=== PATIENT | female | born 1970 | race Caucasian/White ===

== ENCOUNTER 2018-01-12 12:51 | Emergency (ER) | payer OTHER, SELFPAY ==
--- NOTE | 2018-01-12 15:02 | RAD ---
RIGHT ANKLE 3 VIEWS: Date: 01/12/18 PROVIDED CLINICAL HISTORY: Right ankle pain status post fall. FINDINGS: There is no evidence for fracture or other acute osseous abnormality. If there is persistent clinical concern, conservative management and follow-up imaging are advised. Postoperative changes are seen i nvolving the fifth metatarsal. IMPRESSION: As above. POS: [facility]
[2018-01-12] MEDS ORDERED: Adacel (T-DAP) 0.5 ML VIAL ONE (15:17)
[2018-01-12] MEDS ORDERED: Bacitracin Zinc 1 Packet ONE (15:25)
== END 2018-01-12 15:50 | disposition home or self-care (01) ==
LOC: ERS 12:51
DX: S93.401A Sprain of unspecified ligament of right ankle, initial encounter (principal); S80.212A Abrasion, left knee, initial encounter; E66.9 Obesity, unspecified; Z79.899 Other long term (current) drug therapy; X50.1XXA Overexertion from prolonged static or awkward postures, initial encounter
CPT/HCPCS: 90471; 90715

== ENCOUNTER 2018-07-12 08:05 | Emergency (ER) | payer SELFPAY ==
[2018-07-12] MEDS ORDERED: Amoxicillin/Potassium Clav 875 MG TAB ONE (09:53)
[2018-07-12] MEDS ORDERED: Acetaminophen/Codeine 30-300mg Tablet ONE (09:53)
== END 2018-07-12 09:58 | disposition home or self-care (01) ==
LOC: ERS 08:05
DX: K04.7 Periapical abscess without sinus (principal); I10 Essential (primary) hypertension; F32.9 Major depressive disorder, single episode, unspecified
CPT/HCPCS: 99282

== ENCOUNTER 2018-07-29 13:53 | Emergency (ER) | payer SELFPAY ==
[~2018-07-29 13:53] MED LIST: ISOVUE-370 76%-LOCM 1 ML ONE
[2018-07-29 14:56] LABS: #Eosinphils 0.2 thou/uL (0.0-0.7); #Lymphocytes 2.5 thou/uL (1.20-3.40); #Monocytes 0.5 thou/uL (0.11-0.59); #Neutrophils 3.5 thou/uL (1.40-6.50); %Basophils 0.7 % (0.0-1.0); %Lymphocytes 36.7 % (21.0-51.0); %Monocytes 7.5 % (0.0-10.0); %Neutrophils 52.2 % (42.0-75.0); Hemoglobin 10.6 g/dL (12.0-16.0); Mean Corpuscular HGB CONC 32.4 g/dL (32.0-36.0); Mean Corpuscular Volume 80.3 fL (78.0-98.0); Mean Platelet Volume 7.7 fL (7.4-10.4); Platelet Count 384 thou/uL (130-400); RBC Distribution Width 15.3 % (11.5-14.5); Red Blood Cell (RBC) Count 4.06 mill/uL (4.20-5.40); White Blood Cell (WBC) Count 6.7 thou/uL (4.8-10.8)
--- NOTE | 2018-07-29 15:02 | CT ---
FCT Brain WO Con: 07/29/2018 2:30 PM CLINICAL HISTORY: Altered mental status. COMPARISON: None. FINDINGS: Hemorrhage: None. Ventricular system: Normal in size and morphology for the patient's age. Cerebral parenchyma: No significant abnormalities. Midline shift: None. Calvarium: Normal. Visualized Paranasal sinuses: Clear. IMPRESSION: No acute intracranial abnormalities.
[2018-07-29 15:10] LABS: ALT (SGPT) 15 U/L (8-55); AST (SGOT) 24 U/L (5-34); Alkaline Phosphatase 95 U/L (40-150); Anion Gap 15 mmol/L (10-20); BUN (Urea Nitrogen) 41 mg/dL (7.0-18.7); Bilirubin, Total 0.3 mg/dL (0.2-1.2); CK (CPK) 370 U/L (29-168); Calc. Creatinine Clearance 0 mL/min (70-130); Calcium 9.2 mg/dL (7.8-10.44); Carbon Dioxide 22 mmol/L (22-29); Chloride 102 mmol/L (98-107); Estimated GFR-MDRD 45; Globulin 3.3 g/dL (2.4-3.5); Glucose 112 mg/dL (70-105); Potassium 5.1 mmol/L (3.5-5.1); Protein, Total 7.3 g/dL (6.0-8.3); Sodium 134 mmol/L (136-145)
--- NOTE | 2018-07-29 16:40 | CT ---
FCTA thorax with contrast with 3-D volume rendering CLINICAL HISTORY: Tachypnea, tachycardia FINDINGS: No significant filling defect of pulmonary arteries. No lobar consolidation, effusion, or pneumothorax. Minimal patchy density may relate to atelectasis o r mild scar. Gastric band is in place with patulous esophagus demonstrating thick wall. There is mild hiatal herni a. Chronic posterior right rib deformity is present. IMPRESSION: No acute pulmonary embolus. Additional details are described above.
[2018-07-29 17:03] LABS: Bilirubin Negative (Negative); Blood, Urine Negative (Negative); Clarity CLEAR (Clear); Glucose, Urine (Dipstick) Negative (Negative); Leukocyte Negative (Negative); Nitrite Negative (Negative); Protein, Urine (Dipstick) Negative (Neg-Trace); Specific Gravity, Urine 1.029 (1.002-1.036); Urobilinogen 0.2 mg/dL (0.2-1.0)
== END 2018-07-29 18:27 | disposition home or self-care (01) ==
LOC: ERS 13:53
DX: E86.0 Dehydration (principal); R20.2 Paresthesia of skin; I10 Essential (primary) hypertension; F41.9 Anxiety disorder, unspecified; F31.9 Bipolar disorder, unspecified; Z79.899 Other long term (current) drug therapy
CPT/HCPCS: 70450; 71275; 80053; 81003; 82550; 84443; 85025; 85379; 93005; 94760; 96360; Q9966

== ENCOUNTER 2019-02-26 02:56 | Inpatient (IN) | payer SELFPAY ==
[2019-02-26] MEDS ORDERED: methylPREDNISolone Sod Succ/PF 125 MG/2 ML VIAL ONE (03:22)
[2019-02-26] MEDS ORDERED: Ondansetron PF 4 MG/2 ML Vial ONE (03:32)
[2019-02-26 03:34] LABS: #Eosinphils 0.1 thou/uL (0.0-0.7); #Lymphocytes 1.5 thou/uL (1.20-3.40); #Monocytes 0.1 thou/uL (0.11-0.59); #Neutrophils 6.6 thou/uL (1.40-6.50); %Basophils 0.4 % (0.0-1.0); %Eosinophils 1.2 % (0.0-10.0); %Lymphocytes 17.8 % (21.0-51.0); %Neutrophils 79.6 % (42.0-75.0); Hemoglobin 11.6 g/dL (12.0-16.0); Mean Corpuscular Hemoglobin 29.4 pg (27.0-31.0); Mean Corpuscular Volume 86.6 fL (78.0-98.0); Mean Platelet Volume 7.2 fL (7.4-10.4); Platelet Count 334 thou/uL (130-400); RBC Distribution Width 13.1 % (11.5-14.5); Red Blood Cell (RBC) Count 3.94 mill/uL (4.20-5.40); White Blood Cell (WBC) Count 8.3 thou/uL (4.8-10.8)
[2019-02-26 03:58] LABS: ALT (SGPT) 15 U/L (8-55); AST (SGOT) 20 U/L (5-34); Albumin 3.9 g/dL (3.5-5.0); Alkaline Phosphatase 78 U/L (40-110); Anion Gap 14 mmol/L (10-20); BUN (Urea Nitrogen) 18 mg/dL (7.0-18.7); Bilirubin, Total 0.2 mg/dL (0.2-1.2); CK (CPK) 244 U/L (29-168); Calc. Creatinine Clearance 0 mL/min (70-130); Calcium 9.1 mg/dL (7.8-10.44); Carbon Dioxide 23 mmol/L (22-29); Chloride 107 mmol/L (98-107); Estimated GFR-MDRD 55; Globulin 2.9 g/dL (2.4-3.5); Glucose 105 mg/dL (70-105); Potassium 3.6 mmol/L (3.5-5.1); Protein, Total 6.8 g/dL (6.0-8.3); Sodium 140 mmol/L (136-145)
[2019-02-26] MEDS ORDERED: Azithromycin 500 MG VIAL ONE (03:59)
[2019-02-26] MEDS ORDERED: cefTRIAXone\\ROCEPHIN 1 GM VIAL ONE (03:59)
[2019-02-26] MEDS ORDERED: Acetaminophen 500 MG TAB ONE (06:28)
--- NOTE | 2019-02-26 07:58 | RAD ---
EXAM: Chest PA and lateral: HISTORY: Shortness of breath x6 hours. COMPARISON: 05/23/2012 FINDINGS: Heart: Normal cardiac silhouette Aorta: Unremarkable Pulmonary vessels: Normal Costophrenic angles: Costophrenic angles are clear. Lungs: Patchy interstitial and alveolar opacities predominantly in the right lung. Pneumothorax: No pneumothorax Osseous structures: No osseous abnormalities IMPRESSION: Patchy interstitial and alveolar opacities predominantly in the right lung. Continued surveillance is recommended.
[2019-02-26] MEDS ORDERED: Acetaminophen 325 MG TAB PO PRN (08:28)
[2019-02-26] MEDS ORDERED: Labetalol HCl 100 MG/20 ML VIAL SLOW IVP PRN (08:31)
[2019-02-26] MEDS ORDERED: Docusate 100 MG CAP PO PRN (08:31)
[2019-02-26] MEDS ORDERED: Benzonatate 100 MG CAP PO PRN (08:31)
[2019-02-26] MEDS ORDERED: Famotidine 20 MG TAB PO SCH (09:00)
[2019-02-26] MEDS ORDERED: Ondansetron ODT 4 MG TAB PO PRN (09:34)
[2019-02-26] MEDS ORDERED: Ondansetron PF 4 MG/2 ML Vial IVP PRN (09:34)
--- NOTE | 2019-02-26 09:34 | CT ---
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 Denies fever, palpitations, or syncope. No history of c opd or heart disease. Exacerbated by exertion. Alleviated by nothing. No medications prior to arrival TECHNIQUE: Imaging protocol: Computed tomographic angiography of the chest with intravenous contrast. 3D rendering: MIP reconstructed images were created and reviewed. COMPARISON: No relevant prior studies available. FINDINGS: Pulmonary arteries: Motion artifact most prominent in the bases. No pulmonary embolus identified in t he main or lobar branches or upper lobe segmental branches which can be evaluated. Aorta: No aortic aneurysm. No aortic dissection. Lungs: Scattered patchy groundglass opacities and foci of airspace disease in the right lung most pro minent in the mid to lower lung field and dependently. Clear left lung. Pleural space: No pneumothorax. No pleural effusion. Heart: Minimal pericardial effusion. Mediastinum: Fluid-filled esophagus with mild apparent wall thickening. Lymph nodes: Unremarkable. No enlarged lymph nodes. Bones/joints: Unremarkable. No acute fracture. Soft tissues: Unremarkable. Other findings: Gastric band. IMPRESSION: 1. No evidence of central pulmonary embolus. 2. Patchy airspace disease in the right lung suggestive of pneumonia or aspiration pneumonia. 3. Fluid-filled esophagus with apparent wall thickening. Thank you for allowing us to participate in the care of your patient. Dictated and Authenticated by: Kal Forrester MD 02/26/2019 6:03 AM Central Time ([place] & [place]) FINAL REPORT EMERGENCY AFTER HOURS CT ANGIOGRAM CHEST WITH 3D RENDERING: DATE: 02/26/19 TIME: 0506 hours FINDINGS/IMPRESSION: Evidence for right lung pneumonia. Opacification of the mid and peripheral pulmonary artery branches is limited. No evidence for central pulmonary embolism. Lap band in place with minimally dilated lizy nirav pouch, as well as fluid-filled dilated esophagus with minimal wall thickening at the GE junction. Report in agreement with preliminary report given on-call by Asad. POS: [facility] [place]
[2019-02-26 11:44] VITALS: BMI 47.2
[2019-02-26] MEDS ORDERED: Famotidine 20 MG TAB PO PRN (12:10)
[2019-02-26] MEDS: Nicotine 14 MG PATCH TD SCH (14:42)
[2019-02-26] MEDS: HYDROcodone/Acetaminophen 5/325 mg Tablet PO PRN ×2 (14:51→20:09)
--- NOTE | 2019-02-26 15:23 | PDOC.HHP ---
Hospitalist HPI - History of Present Illness Shortness of breath History of Present Illness: 49-year-old female with past medical history of hypertension, gastroesophageal reflux disease, depression, elevated BMI status post lap band surgery, and tobacco abuse presents with worsening cough and shortness of breath. Patient states the symptoms started last night all of a sudden she was noticing she was feeling very short of breath. Patient works in the front window cashier in a hotel and she is exposed to the general public and she could've picked something up from them though she does not specifically recall any sick contacts. Patient denies subjective fever chills. Patient is not having productive sputum. Patient has not tried any remedies to get shortness of breath or cough resolved. The patient has been having worsening GERD symptoms for which she normally takes ranitidine, though she has not been taking it since it was taken off the market. Recently. Patient has prior history of smoking cigarette tobacco abuse and she has changed of vaping, this is her most significant risk factor for community acquired pneumonia. Patient admitted to medical unit with telemetry for further evaluation and treatment. Patient had CT angiography of the chest that was negative for pulmonary embolism and did demonstrate right-sided pneumonia. Patient started on antibiotics, breathing treatments, and IV fluid resuscitation. Hospitalist ROS - Review of Systems All other systems reviewed; all pertinent +/- noted in HPI/Subj - Medication Medications: Active Medications Generic Name Dose Route Start Last Admin Trade Name Freq PRN Reason Stop Dose Admin Hydrocodone Bitart/Acetaminophen 1 tab 02/26/19 08:28 02/26/19 14:51 [place] 5/325 PO 1 tab Q4H PRN Administration Moderate Pain (4-6) Albuterol/Ipratropium 3 ml 02/26/19 11:00 02/26/19 14:39 Duoneb IPPB 3 ml [id number] JESSE Administration Famotidine 20 mg 02/26/19 12:10 02/26/19 14:51 Pepcid PO 20 mg BID PRN Administration Indigestion Nicotine 14 mg 02/26/19 13:00 02/26/19 14:42 Nicoderm Patch TD 14 mg Q24HR JESSE Administration Hospitalist History - Past Medical History Source: patient Cardiac: reports: HTN Pulmonary: reports: hypertension Gastrointestinal: reports: GERD Psych: reports: Depression - Past Surgical History Past Surgical History: reports: Other (Lap band) - Family History Family History: reports: hyperlipidemia, hypertension - Social History Smoking Status: Current every day smoker (Smokes vape nicotine, former cigarette smoker) Tobacco Type: cigarettes (Now vape) Alcohol: reports: Rare Drugs: reports: none Living Situation: With Family Domestic Violence: Negative Activity level: independent ambulation - Exam General Appearance: NAD, awake alert Eye: PERRL, anicteric sclera ENT: normocephalic atraumatic, moist mucosa Neck: supple, symmetric, no lymphadenopathy Heart: RRR, no murmur, no gallops Respiratory: no rales, normal chest expansion, rhonchi, wheezes (Right sided wheezing - most significant in right middle lobe) Gastrointestinal: soft, non-tender, no guarding, no rigidity Extremities: no edema Skin: no lesions, no rashes Neurological: cranial nerve grossly intact, normal sensation to touch, no focal deficits Musculoskeletal: normal strength, no muscle wasting Psychiatric: normal affect, A&O x 3 Hospitalist Results - Labs Result Diagrams: 02/26/19 03:15 02/26/19 03:15 Lab results: WBC 8.3 thou/uL (4.8-10.8) 02/26/19 03:15 Hgb 11.6 g/dL (12.0-16.0) L 02/26/19 03:15 Hct 34.1 % (36.0-47.0) L 02/26/19 03:15 MCV 86.6 fL (78.0-98.0) 02/26/19 03:15 Plt Count 334 thou/uL (130-400) 02/26/19 03:15 Neutrophils % 79.6 % (42.0-75.0) H 02/26/19 03:15 Sodium 140 mmol/L (136-145) 02/26/19 03:15 Potassium 3.6 mmol/L (3.5-5.1) 02/26/19 03:15 Chloride 107 mmol/L (98-107) 02/26/19 03:15 Carbon Dioxide 23 mmol/L (22-29) 02/26/19 03:15 BUN 18 mg/dL (7.0-18.7) 02/26/19 03:15 Creatinine 1.07 mg/dL (0.6-1.1) 02/26/19 03:15 Glucose 105 mg/dL (70-105) 02/26/19 03:15 Calcium 9.1 mg/dL (7.8-10.44) 02/26/19 03:15 Total Bilirubin 0.2 mg/dL (0.2-1.2) 02/26/19 03:15 AST 20 U/L (5-34) 02/26/19 03:15 ALT 15 U/L (8-55) 02/26/19 03:15 Alkaline Phosphatase 78 U/L (40-110) 02/26/19 03:15 Creatine Kinase 244 U/L (29-168) H 02/26/19 03:15 Troponin I Less than 0.010 ng/mL (< 0.028) 02/26/19 03:15 Serum Total Protein 6.8 g/dL (6.0-8.3) 02/26/19 03:15 Albumin 3.9 g/dL (3.5-5.0) 02/26/19 03:15 - Radiology Interpretation CT scan - chest Status: image reviewed by oh Chest x-ray Status: image reviewed by oh Hospitalist H&P A/P - Problem (1) Community acquired bacterial pneumonia Code(s): J15.9 - UNSPECIFIED BACTERIAL PNEUMONIA Status: Acute (2) Shortness of breath Code(s): R06.02 - SHORTNESS OF BREATH Status: Acute (3) Cough Code(s): R05 - COUGH Status: Acute (4) Obesity Code(s): E66.9 - OBESITY, UNSPECIFIED Status: Chronic (5) HTN (hypertension) Code(s): I10 - ESSENTIAL (PRIMARY) HYPERTENSION Status: Chronic (6) GERD (gastroesophageal reflux disease) Code(s): K21.9 - GASTRO-ESOPHAGEAL REFLUX DISEASE WITHOUT ESOPHAGITIS Status: Chronic (7) Tobacco abuse Code(s): Z72.0 - TOBACCO USE Status: Chronic (8) Depression Code(s): F32.9 - MAJOR DEPRESSIVE DISORDER, SINGLE EPISODE, UNSPECIFIED Status : Chronic - Plan Plan: Plan: Admit to medical unit CT angiography of the chest concerning for right middle lobe pneumonia start pulmonary specific antibiotics with coverage for community acquired pneumonia small-volume nebulizers scheduled and as needed for shortness of breath cough aid with tessalon pearls as needed resume patient's home blood pressure medications, may need to increase dose. We will hold her clonidine and recommend discontinuing this medication as this results in rebound hypertension continue mood stabilizing medications protonic's QAM for uncontrolled GERD, famotidine as needed for symptoms, may use Tums if she prefers patient not requiring supplemental oxygen blood pressure control patient does not have insurance, will order screening labs with hemoglobin A1c, lipid panel, and thyroid function as she has limited access to medical services in the outpatient setting.
[2019-02-26 16:30] LABS: Hemoglobin A1c 5.3 % (4.0-6.0)
[2019-02-26 17:12] LABS: Free T4 (Free Thyroxine) 0.73 ng/dL (0.70-1.48); Thyroid Stimulating Hormone 0.8903 uIU/mL (0.35-4.94)
[2019-02-26] MEDS ORDERED: ISOVUE-370 76%-LOCM 1 ML ONE (19:04)
[2019-02-26] MEDS: diphenhydrAMINE 25 MG CAP PO PRN (20:09)
[2019-02-26] MEDS: Melatonin 3 MG TAB PO PRN (20:09)
[2019-02-26] MEDS: buPROPion HCl 100 MG TAB PO SCH (20:26)
[2019-02-27] MEDS: HYDROcodone/Acetaminophen 7.5/325 mg Tablet PO PRN (00:24)
[2019-02-27] MEDS: cefTRIAXone\\ROCEPHIN 2 GM in Sodium Chloride 0.9% 100 ML IVPB SCH (03:22)
[2019-02-27 06:44] LABS: Anion Gap 13 mmol/L (10-20); BUN (Urea Nitrogen) 11 mg/dL (7.0-18.7); Calc. Creatinine Clearance 165 mL/min (70-130); Calcium 8.7 mg/dL (7.8-10.44); Carbon Dioxide 22 mmol/L (22-29); Cardiac Risk 2.2 (Less than 4.5); Chloride 107 mmol/L (98-107); Cholesterol 159 mg/dl (< 200 Desired); Estimated GFR-MDRD 83; Glucose 84 mg/dL (70-105); HDL Cholesterol 71 mg/dL (>60 Neg Risk); LDL Cholesterol, Calculated 71 mg/dL; Potassium 3.7 mmol/L (3.5-5.1); Sodium 138 mmol/L (136-145); Triglycerides 84 mg/dL (Less than 150)
[2019-02-27 06:46] LABS: Hemoglobin 9.6 g/dL (12.0-16.0); Mean Corpuscular HGB CONC 32.6 g/dL (32.0-36.0); Mean Corpuscular Hemoglobin 28.8 pg (27.0-31.0); Mean Corpuscular Volume 88.6 fL (78.0-98.0); Platelet Count 268 thou/uL (130-400); RBC Distribution Width 13.4 % (11.5-14.5); Red Blood Cell (RBC) Count 3.32 mill/uL (4.20-5.40); White Blood Cell (WBC) Count 16.4 thou/uL (4.8-10.8)
[2019-02-27 07:49] LABS: Band 20 % (5-11); Lymphocytes 10 % (21-51); MDiff Complete? YES; Monocytes 4 % (0-10); Neutrophil 65 % (42-75); Platelet Morphology Comment Appears Adequate; Polychromasia SLIGHT = 2-3 cells (100X) (0-2/hpf)
[2019-02-27] MEDS: Nicotine 14 MG PATCH TD SCH (08:29)
[2019-02-27] MEDS: Citalopram 20 MG TAB PO SCH (08:29)
[2019-02-27] MEDS: Losartan 25 MG TAB PO SCH (08:29)
[2019-02-27] MEDS: buPROPion HCl 100 MG TAB PO SCH ×2 (08:29→20:22)
[2019-02-27] MEDS ORDERED: SUMAtriptan Succinate 25 MG TAB PO SCH (09:00)
[2019-02-27] MEDS ORDERED: FLU VACC QS2019-20(6MOS UP)/PF 60 MCG/0.5 ML SYRINGE IM ONE (12:15)
--- NOTE | 2019-02-27 15:49 | PDOC.HOSPP ---
- Subjective Subjective: Seen and examined. Patient states that cough is worse. Getting some deep mucus rumbling though she is not able to cough it out. Overall not feeling better. WBC count up. Continuing antibiotics and breathing treatments. Patient had migraine this a.m., better with Imitrex. - Objective Vital Signs & Weight: Vital Signs (12 hours) Temp Pulse Resp BP Pulse Ox 02/27/19 13:51 96 18 95 02/27/19 11:58 99.2 F 96 20 149/91 H 91 L 02/27/19 07:05 98.5 F 108 H 20 146/91 H 94 L 02/27/19 06:26 101 H 18 94 L 02/27/19 04:00 98.1 F 92 18 137/89 94 L Weight Weight 250 lb I&O: 02/26/19 02/27/19 02/28/19 06:59 06:59 06:59 Intake Total 510 Balance 510 Result Diagrams: 02/27/19 05:48 02/27/19 05:48 Radiology Reviewed by me: Yes (CTA chest) Hospitalist ROS - Review of Systems All other systems reviewed; all pertinent +/- noted in HPI/Subj - Medication Medications: Active Medications Generic Name Dose Route Start Last Admin Trade Name Freq PRN Reason Stop Dose Admin Hydrocodone Bitart/Acetaminophen 1 tab 02/26/19 08:28 02/26/19 20:09 [place] 5/325 PO 1 tab Q4H PRN Administration Moderate Pain (4-6) Hydrocodone Bitart/Acetaminophen 1 tab 02/26/19 08:28 02/27/19 00:24 [place] 7.5/325 PO 1 tab Q4H PRN Administration Severe Pain (7-10) Albuterol/Ipratropium 3 ml 02/26/19 11:00 02/27/19 13:51 Duoneb IPPB 3 ml [id number] JESSE Administration Bupropion HCl 200 mg 02/26/19 21:00 02/27/19 08:29 Wellbutrin PO 200 mg BID JESSE Administration Citalopram Hydrobromide 40 mg 02/27/19 09:00 02/27/19 08:29 Celexa PO 40 mg DAILY JESSE Administration Diphenhydramine HCl 25 mg 02/26/19 08:31 02/26/19 20:09 Benadryl PO 25 mg Q6H PRN Administration Itching & Insomnia Famotidine 20 mg 02/26/19 12:10 02/26/19 14:51 Pepcid PO 20 mg BID PRN Administration Indigestion Ceftriaxone Sodium 2 gm/ 100 mls @ 200 mls/hr 02/27/19 04:00 02/27/19 03:22 Sodium Chloride IVPB 03/05/19 08:46 100 mls 0400 JESSE Administration Losartan Potassium 100 mg 02/27/19 09:00 02/27/19 08:29 Cozaar PO 100 mg DAILY JESSE Administration Melatonin 3 mg 02/26/19 08:31 02/26/19 20:09 Melatonin PO 3 mg HS PRN Administration Insomnia Nicotine 14 mg 02/26/19 13:00 02/27/19 08:29 Nicoderm Patch TD 14 mg Q24HR JESSE Administration Pantoprazole Sodium 40 mg 02/27/19 09:00 02/27/19 08:29 Protonix PO 40 mg QAM JESSE Administration Sodium Chloride 10 ml 02/27/19 09:00 02/27/19 09:41 Flush - Normal Saline IVF 10 ml Q12HR JESSE Administration - Exam General Appearance: NAD, awake alert Eye: PERRL ENT: normocephalic atraumatic, moist mucosa Neck: supple, symmetric, no lymphadenopathy Heart: RRR, no murmur, no gallops, no rubs Respiratory: no rales, normal chest expansion, no tachypnea, rhonchi, wheezes ( Right middle lobe rhonchi and wheezing) Gastrointestinal: soft, non-tender, non-distended, no guarding, no rigidity Extremities: no clubbing, no edema Skin: no lesions, no rashes Neurological: cranial nerve grossly intact, normal sensation to touch, no focal deficits Musculoskeletal: normal strength, no muscle wasting Psychiatric: normal affect, A&O x 3 Hosp A/P (1) Community acquired bacterial pneumonia Code(s): J15.9 - UNSPECIFIED BACTERIAL PNEUMONIA Status: Acute (2) Shortness of breath Code(s): R06.02 - SHORTNESS OF BREATH Status: Acute (3) Cough Code(s): R05 - COUGH Status: Resolved (4) Obesity Code(s): E66.9 - OBESITY, UNSPECIFIED Status: Chronic (5) HTN (hypertension) Code(s): I10 - ESSENTIAL (PRIMARY) HYPERTENSION Status: Chronic (6) GERD (gastroesophageal reflux disease) Code(s): K21.9 - GASTRO-ESOPHAGEAL REFLUX DISEASE WITHOUT ESOPHAGITIS Status: Chronic (7) Tobacco abuse Code(s): Z72.0 - TOBACCO USE Status: Chronic (8) Depression Code(s): F32.9 - MAJOR DEPRESSIVE DISORDER, SINGLE EPISODE, UNSPECIFIED Status : Chronic - Plan Plan: medical unit CT angiography of the chest concerning for right middle lobe pneumonia, no pulmonary embolism WBC 16k continue pulmonary specific antibiotics small-volume nebulizers scheduled and as needed for shortness of breath Add Muscinex for expectorant cough aid with tessalon pearls as needed Nicotine patch resume blood pressure medications continue mood stabilizing medications protonic's QAM symptomatic therapy for GERD as needed Imitrex times one this a.m. for migraine Topamax started for chronic making control, she has been on this in the past lipid panel not elevated, no need for cholesterol-lowering medication thyroid function normal A1C 5.3, no DM
[2019-02-27] MEDS: guaiFENesin ER 600 MG TAB PO SCH (20:22)
[2019-02-27] MEDS: diphenhydrAMINE 25 MG CAP PO PRN (20:23)
[2019-02-27] MEDS: Melatonin 3 MG TAB PO PRN (20:23)
[2019-02-27] MEDS: Topiramate 25 MG TAB PO SCH (20:23)
[2019-02-28] MEDS: cefTRIAXone\\ROCEPHIN 2 GM in Sodium Chloride 0.9% 100 ML IVPB SCH (03:20)
[2019-02-28] MEDS: buPROPion HCl 100 MG TAB PO SCH ×2 (08:29→20:18)
[2019-02-28] MEDS: Topiramate 25 MG TAB PO SCH ×2 (08:29→20:16)
[2019-02-28] MEDS: guaiFENesin ER 600 MG TAB PO SCH ×2 (08:29→20:16)
[2019-02-28] MEDS: Losartan 25 MG TAB PO SCH (08:29)
[2019-02-28] MEDS: Nicotine 14 MG PATCH TD SCH (08:29)
[2019-02-28] MEDS: Citalopram 20 MG TAB PO SCH (08:29)
[2019-02-28] MEDS ORDERED: Nicotine 14 MG PATCH TD PRN (13:44)
[2019-02-28] MEDS ORDERED: cloNIDine 0.1 MG TAB PO PRN (13:45)
[2019-02-28] MEDS ORDERED: Fluconazole 100 MG TAB PO SCH (13:45)
--- NOTE | 2019-02-28 14:01 | PDOC.HOSPP ---
- Subjective Encounter Date: 02/28/19 Encounter Time: 13:59 Subjective: Patient seen and examined for Pneumonia. Feels gen weak and fatigued. Exertional dyspnea. No other complaints. No overnight events - Objective Vital Signs & Weight: Vital Signs (12 hours) Temp Pulse Resp BP Pulse Ox 02/28/19 11:37 92 16 02/28/19 07:07 98.1 F 92 18 150/89 H 94 L 02/28/19 06:38 103 H 18 98 02/28/19 03:26 98.5 F 92 18 142/98 H 93 L Weight Weight 250 lb I&O: 02/27/19 02/28/19 03/01/19 06:59 06:59 06:59 Intake Total 510 1720 Balance 510 1720 Result Diagrams: 02/27/19 05:48 02/27/19 05:48 Radiology Reviewed by me: Yes (CTA - Rt sided pneumonia) Hospitalist ROS - Review of Systems Respiratory: reports: cough, dry, shortness of breath, SOB with excertion, pleuritic pain Cardiovascular: denies: chest pain, palpitations, orthopnea, paroxysmal noc. dyspnea, edema, light headedness, other Gastrointestinal: denies: nausea, vomiting, abdominal pain, diarrhea, constipation, melena, hematochezia, other - Medication Medications: Active Medications Generic Name Dose Route Start Last Admin Trade Name Freq PRN Reason Stop Dose Admin Hydrocodone Bitart/Acetaminophen 1 tab 02/26/19 08:28 02/26/19 20:09 [place] 5/325 PO 1 tab Q4H PRN Administration Moderate Pain (4-6) Hydrocodone Bitart/Acetaminophen 1 tab 02/26/19 08:28 02/27/19 00:24 [place] 7.5/325 PO 1 tab Q4H PRN Administration Severe Pain (7-10) Bupropion HCl 200 mg 02/26/19 21:00 02/28/19 08:29 Wellbutrin PO 200 mg BID JESSE Administration Diphenhydramine HCl 25 mg 02/26/19 08:31 02/27/19 20:23 Benadryl PO 25 mg Q6H PRN Administration Itching & Insomnia Famotidine 20 mg 02/26/19 12:10 02/26/19 14:51 Pepcid PO 20 mg BID PRN Administration Indigestion Guaifenesin 1,200 mg 02/27/19 21:00 02/28/19 08:29 Mucinex PO 03/02/19 21:01 1,200 mg Q12HR JESSE Administration Losartan Potassium 100 mg 02/27/19 09:00 02/28/19 08:29 Cozaar PO 100 mg DAILY JESSE Administration Melatonin 3 mg 02/26/19 08:31 02/27/19 20:23 Melatonin PO 3 mg HS PRN Administration Insomnia Sodium Chloride 10 ml 02/27/19 09:00 02/28/19 08:30 Flush - Normal Saline IVF 10 ml Q12HR JESSE Administration Topiramate 50 mg 02/27/19 21:00 02/28/19 08:29 Topamax PO 50 mg BID JESSE Administration - Exam General Appearance: NAD Neck: supple, no JVD Heart: RRR, no gallops Respiratory: CTAB, rales (Rt sided), rhonchi Gastrointestinal: soft, non-tender, non-distended, normal bowel sounds Extremities: no edema Hosp A/P - Plan DVT proph w/SCDs Rt sided Pneumonia ? Community acquired vs Aspiration (CTA showed fluid filled esophagus) Tobacco dep Neema Vaginitis Anxiety Morbid obesity GERD PLAN: Change Ceftriaxone to Zosyn for possible Aspiration Add Azithromycin for possible CA Pneumonia Change Nicotin patch to PRN Cont Nebs Add Fluconazole Hold Celexa while on Fluconazole AM labs Cont Mucinex Add O2 humidification Repeat CXR - PA/Lat in AM Tobacco cessation Lifestyle mod for GERD
[2019-02-28] MEDS: Piperacillin/Tazobactam 3.375 GM in Sodium Chloride 0.9% 100 ML IVPB SCH ×2 (15:44→23:05)
[2019-02-28] MEDS: Azithromycin 500 MG in Sodium Chloride 0.9% 250 ML 250 ML IVPB SCH (15:44)
[2019-02-28] MEDS: HYDROcodone/Acetaminophen 7.5/325 mg Tablet PO PRN (15:50)
[2019-02-28] MEDS: Polyethylene Glycol 3350 17 GM Packet PO PRN (20:14)
[2019-02-28] MEDS: Senokot S 8.6-50 MG TAB PO SCH (20:16)
[2019-02-28] MEDS: Melatonin 3 MG TAB PO PRN (20:17)
[2019-02-28] MEDS: diphenhydrAMINE 25 MG CAP PO PRN (20:18)
[2019-03-01] MEDS: Piperacillin/Tazobactam 3.375 GM in Sodium Chloride 0.9% 100 ML IVPB SCH ×3 (05:04→17:56)
[2019-03-01 07:21] LABS: #Basophils 0.1 thou/uL (0.0-0.2); #Eosinphils 0.4 thou/uL (0.0-0.7); #Lymphocytes 1.7 thou/uL (1.20-3.40); #Monocytes 0.6 thou/uL (0.11-0.59); #Neutrophils 7.2 thou/uL (1.40-6.50); %Basophils 0.6 % (0.0-1.0); %Eosinophils 3.7 % (0.0-10.0); %Lymphocytes 16.9 % (21.0-51.0); %Monocytes 5.6 % (0.0-10.0); %Neutrophils 73.2 % (42.0-75.0); Hemoglobin 10.5 g/dL (12.0-16.0); Mean Corpuscular HGB CONC 32.7 g/dL (32.0-36.0); Mean Corpuscular Hemoglobin 29.4 pg (27.0-31.0); Mean Corpuscular Volume 90.1 fL (78.0-98.0); Mean Platelet Volume 7.2 fL (7.4-10.4); Platelet Count 327 thou/uL (130-400); RBC Distribution Width 13.4 % (11.5-14.5); Red Blood Cell (RBC) Count 3.58 mill/uL (4.20-5.40); White Blood Cell (WBC) Count 9.9 thou/uL (4.8-10.8)
[2019-03-01 07:43] LABS: ALT (SGPT) 9 U/L (8-55); AST (SGOT) 15 U/L (5-34); Albumin 3.7 g/dL (3.5-5.0); Alkaline Phosphatase 68 U/L (40-110); Anion Gap 15 mmol/L (10-20); BUN (Urea Nitrogen) 12 mg/dL (7.0-18.7); Bilirubin, Total 0.4 mg/dL (0.2-1.2); Calc. Creatinine Clearance 137 mL/min (70-130); Carbon Dioxide 18 mmol/L (22-29); Chloride 108 mmol/L (98-107); Estimated GFR-MDRD 67; Glucose 78 mg/dL (70-105); Magnesium 2.1 mg/dL (1.6-2.6); Potassium 3.9 mmol/L (3.5-5.1); Protein, Total 6.7 g/dL (6.0-8.3); Sodium 137 mmol/L (136-145)
[2019-03-01] MEDS: Losartan 25 MG TAB PO SCH (08:24)
[2019-03-01] MEDS: guaiFENesin ER 600 MG TAB PO SCH ×2 (08:25→20:07)
[2019-03-01] MEDS: Saccharomyces boulardii 250 MG CAP PO SCH (08:25)
[2019-03-01] MEDS: Topiramate 25 MG TAB PO SCH ×2 (08:25→20:07)
[2019-03-01] MEDS: buPROPion HCl 100 MG TAB PO SCH ×2 (08:25→20:07)
[2019-03-01] MEDS: Fluconazole 100 MG TAB PO SCH (08:25)
[2019-03-01] MEDS: Senokot S 8.6-50 MG TAB PO SCH ×2 (08:26→20:07)
--- NOTE | 2019-03-01 09:21 | RAD ---
XR Chest Pa Lat STANDARD History: Pneumonia Comparison: Radiograph February 26, 2019 Findings: Improved aeration airspace opacities in the right lung. Left lung is clear. Impression: Improved aeration and decreased involvement right lung pneumonia.
--- NOTE | 2019-03-01 15:31 | PDOC.HOSPP ---
- Subjective Encounter Date: 03/01/19 Encounter Time: 09:20 Subjective: Pt seen for followup re: pneumonia. Still has cough, chest discomfort with coughing. - Objective Vital Signs & Weight: Vital Signs (12 hours) Temp Pulse Resp BP Pulse Ox 03/01/19 12:16 78 03/01/19 08:31 95 03/01/19 07:08 98.5 F 78 18 131/85 95 03/01/19 05:50 98.0 F 76 15 121/82 98 Weight Weight 250 lb I&O: 02/28/19 03/01/19 03/02/19 06:59 06:59 05:59 Intake Total 1720 2170 Balance 1720 2170 Result Diagrams: 03/01/19 06:46 03/01/19 06:46 Additional Labs: labs and MARs reviewed by fl Hospitalist ROS - Review of Systems Respiratory: reports: cough, dry. denies: shortness of breath, hemoptysis, SOB with excertion, pleuritic pain, sputum, wheezing Cardiovascular: denies: chest pain, palpitations, orthopnea, paroxysmal noc. dyspnea, edema, light headedness - Medication Medications: Active Medications Generic Name Dose Route Start Last Admin Trade Name Freq PRN Reason Stop Dose Admin Hydrocodone Bitart/Acetaminophen 1 tab 02/26/19 08:28 02/26/19 20:09 [place] 5/325 PO 1 tab Q4H PRN Administration Moderate Pain (4-6) Hydrocodone Bitart/Acetaminophen 1 tab 02/26/19 08:28 02/28/19 15:50 [place] 7.5/325 PO 1 tab Q4H PRN Administration Severe Pain (7-10) Albuterol/Ipratropium 3 ml 02/28/19 18:30 03/01/19 06:34 Duoneb NEB Not Given BID-RT JESSE Bupropion HCl 200 mg 02/26/19 21:00 03/01/19 08:25 Wellbutrin PO 200 mg BID JESSE Administration Diphenhydramine HCl 25 mg 02/26/19 08:31 02/28/19 20:18 Benadryl PO 25 mg Q6H PRN Administration Itching & Insomnia Famotidine 20 mg 02/26/19 12:10 02/26/19 14:51 Pepcid PO 20 mg BID PRN Administration Indigestion Fluconazole 100 mg 03/01/19 09:00 03/01/19 08:25 Diflucan PO 100 mg DAILY JESSE Administration Guaifenesin 1,200 mg 02/27/19 21:00 03/01/19 08:25 Mucinex PO 03/02/19 21:01 1,200 mg Q12HR JESSE Administration Azithromycin 500 mg/ Sodium 250 mls @ 250 mls/hr 02/28/19 15:00 02/28/19 15: 44 Chloride IVPB 250 mls 1500 JESSE Administration Piperacillin Sod/Tazobactam 100 mls @ 200 mls/hr 02/28/19 18:00 03/01/19 11: 58 Sod 3.375 gm/ Sodium Chloride IVPB 100 mls Q6HR JESSE Administration Losartan Potassium 100 mg 02/27/19 09:00 03/01/19 08:24 Cozaar PO 100 mg DAILY JESSE Administration Melatonin 3 mg 02/26/19 08:31 02/28/19 20:17 Melatonin PO 3 mg HS PRN Administration Insomnia Pantoprazole Sodium 40 mg 02/28/19 21:00 03/01/19 08:26 Protonix PO 40 mg BID JESSE Administration Polyethylene Glycol 17 gm 02/28/19 13:54 02/28/19 20:14 Miralax PO 17 gm DAILYPRN PRN Administration Constipation Saccharomyces Boulardii 250 mg 03/01/19 09:00 03/01/19 08:25 Florastor PO 250 mg DAILY JESSE Administration Senna/Docusate Sodium 1 tab 02/28/19 21:00 03/01/19 08:26 Senokot S PO 1 tab BID JESSE Administration Sodium Chloride 10 ml 02/27/19 09:00 03/01/19 08:26 Flush - Normal Saline IVF 10 ml Q12HR JESSE Administration Topiramate 50 mg 02/27/19 21:00 03/01/19 08:25 Topamax PO 50 mg BID JESSE Administration - Exam General - other findings: Morbid obesity Eye: anicteric sclera ENT: normocephalic atraumatic, moist mucosa Neck: supple, no lymphadenopathy Heart: RRR, no rubs Respiratory: CTAB Gastrointestinal: soft, non-tender Extremities: no cyanosis, no clubbing Hosp A/P - Plan continue antibiotics, respiratory therapy, out of bed/ambulate IMPRESSION: Community acquired vs Aspiration pneumonia. GERD Tobacco dependence Neema Vaginitis Anxiety Morbid obesity PLAN: Continue IV Zosyn, azithromycin. Change Nicotin patch to PRN PRN bronchodilator nebs Continue Fluconazole Celexa is on hold Cont Mucinex Add O2 humidification CXR- improved. Tobacco cessation
[2019-03-01] MEDS: Azithromycin 500 MG in Sodium Chloride 0.9% 250 ML 250 ML IVPB SCH (15:50)
[2019-03-01] MEDS: Polyethylene Glycol 3350 17 GM Packet PO PRN (15:51)
[2019-03-02] MEDS: Piperacillin/Tazobactam 3.375 GM in Sodium Chloride 0.9% 100 ML IVPB SCH ×2 (00:11→05:31)
[2019-03-02] MEDS: Losartan 25 MG TAB PO SCH (08:42)
[2019-03-02] MEDS: buPROPion HCl 100 MG TAB PO SCH ×2 (08:42→20:13)
[2019-03-02] MEDS: Fluconazole 100 MG TAB PO SCH (08:43)
[2019-03-02] MEDS: Senokot S 8.6-50 MG TAB PO SCH ×2 (08:43→21:27)
[2019-03-02] MEDS: guaiFENesin ER 600 MG TAB PO SCH ×2 (08:43→20:14)
[2019-03-02] MEDS: Topiramate 25 MG TAB PO SCH ×2 (08:44→20:14)
[2019-03-02] MEDS: Saccharomyces boulardii 250 MG CAP PO SCH (08:44)
--- NOTE | 2019-03-02 16:41 | PDOC.HOSPP ---
- Subjective Encounter Date: 03/02/19 Encounter Time: 08:40 Subjective: Pt seen for followup re: pneumonia. Feels slightly better. - Objective Vital Signs & Weight: Vital Signs (12 hours) Temp Pulse Resp BP Pulse Ox 03/02/19 08:00 98.6 F 82 17 139/86 97 Weight Weight 250 lb I&O: 03/01/19 03/02/19 03/03/19 07:59 06:59 06:59 Intake Total Balance Result Diagrams: 03/01/19 06:46 03/01/19 06:46 Additional Labs: Labs and MARs reviewed by al Hospitalist ROS - Review of Systems Constitutional: denies: fever, chills, sweats, weakness, malaise Respiratory: reports: cough, sputum. denies: dry, shortness of breath, hemoptysis, SOB with excertion, pleuritic pain, wheezing - Medication Medications: Active Medications Generic Name Dose Route Start Last Admin Trade Name Freq PRN Reason Stop Dose Admin Hydrocodone Bitart/Acetaminophen 1 tab 02/26/19 08:28 02/26/19 20:09 [place] 5/325 PO 1 tab Q4H PRN Administration Moderate Pain (4-6) Hydrocodone Bitart/Acetaminophen 1 tab 02/26/19 08:28 02/28/19 15:50 [place] 7.5/325 PO 1 tab Q4H PRN Administration Severe Pain (7-10) Albuterol/Ipratropium 3 ml 02/28/19 18:30 03/02/19 06:40 Duoneb NEB Not Given BID-RT JESSE Bupropion HCl 200 mg 02/26/19 21:00 03/02/19 08:42 Wellbutrin PO 200 mg BID JESSE Administration Diphenhydramine HCl 25 mg 02/26/19 08:31 02/28/19 20:18 Benadryl PO 25 mg Q6H PRN Administration Itching & Insomnia Docusate Sodium 100 mg 02/26/19 08:31 03/01/19 15:51 Colace PO 100 mg BIDPRN PRN Administration Constipation Famotidine 20 mg 02/26/19 12:10 02/26/19 14:51 Pepcid PO 20 mg BID PRN Administration Indigestion Fluconazole 100 mg 03/01/19 09:00 03/02/19 08:43 Diflucan PO 100 mg DAILY JESSE Administration Guaifenesin 1,200 mg 02/27/19 21:00 03/02/19 08:43 Mucinex PO 03/02/19 21:01 1,200 mg Q12HR JESSE Administration Losartan Potassium 100 mg 02/27/19 09:00 03/02/19 08:42 Cozaar PO 100 mg DAILY JESSE Administration Melatonin 3 mg 02/26/19 08:31 02/28/19 20:17 Melatonin PO 3 mg HS PRN Administration Insomnia Pantoprazole Sodium 40 mg 02/28/19 21:00 03/02/19 08:44 Protonix PO 40 mg BID JESSE Administration Polyethylene Glycol 17 gm 02/28/19 13:54 03/01/19 15:51 Miralax PO 17 gm DAILYPRN PRN Administration Constipation Saccharomyces Boulardii 250 mg 03/01/19 09:00 03/02/19 08:44 Florastor PO 250 mg DAILY JESSE Administration Senna/Docusate Sodium 1 tab 02/28/19 21:00 03/02/19 08:43 Senokot S PO 1 tab BID JESSE Administration Sodium Chloride 10 ml 02/27/19 09:00 03/02/19 08:44 Flush - Normal Saline IVF 10 ml Q12HR JESSE Administration Sodium Chloride 10 ml 02/27/19 09:00 03/01/19 17:59 Flush - Normal Saline IVF 10 ml PRN PRN Administration Saline Flush Topiramate 50 mg 02/27/19 21:00 03/02/19 08:44 Topamax PO 50 mg BID JESSE Administration - Exam General - other findings: Morbid obesity Eye: anicteric sclera ENT: moist mucosa Neck: supple Heart: RRR, no rubs Respiratory: CTAB Gastrointestinal: soft, non-tender Extremities: no clubbing Musculoskeletal: normal tone, normal strength Psychiatric: normal affect, normal behavior Hosp A/P - Plan continue antibiotics, out of bed/ambulate IMPRESSION: Community acquired pneumonia. GERD Tobacco dependence Neema Vaginitis Anxiety Morbid obesity PLAN: Switch to oral levofloxacin. Continue Fluconazole Celexa is on hold Cont Mucinex Add O2 humidification CXR- improved. Tobacco cessation counseling.
[2019-03-02] MEDS: diphenhydrAMINE 25 MG CAP PO PRN (21:27)
[2019-03-02] MEDS: Melatonin 3 MG TAB PO PRN (21:27)
[2019-03-03 06:12] LABS: #Eosinphils 0.4 thou/uL (0.0-0.7); #Monocytes 0.3 thou/uL (0.11-0.59); #Neutrophils 5.1 thou/uL (1.40-6.50); %Basophils 0.4 % (0.0-1.0); %Eosinophils 5.6 % (0.0-10.0); %Lymphocytes 24.9 % (21.0-51.0); %Neutrophils 65.2 % (42.0-75.0); Hemoglobin 10.4 g/dL (12.0-16.0); Mean Corpuscular Hemoglobin 27.9 pg (27.0-31.0); Mean Corpuscular Volume 87.3 fL (78.0-98.0); Mean Platelet Volume 6.9 fL (7.4-10.4); Platelet Count 379 thou/uL (130-400); RBC Distribution Width 13.4 % (11.5-14.5); Red Blood Cell (RBC) Count 3.73 mill/uL (4.20-5.40); White Blood Cell (WBC) Count 7.9 thou/uL (4.8-10.8)
[2019-03-03 06:27] LABS: Anion Gap 11 mmol/L (10-20); BUN (Urea Nitrogen) 13 mg/dL (7.0-18.7); Calc. Creatinine Clearance 132 mL/min (70-130); Calcium 9.7 mg/dL (7.8-10.44); Carbon Dioxide 24 mmol/L (22-29); Chloride 106 mmol/L (98-107); Estimated GFR-MDRD 65; Glucose 111 mg/dL (70-105); Potassium 4.2 mmol/L (3.5-5.1); Sodium 137 mmol/L (136-145)
[2019-03-03 07:16] VITALS: BP 125/69
[2019-03-03] MEDS: buPROPion HCl 100 MG TAB PO SCH (09:07)
[2019-03-03] MEDS: Fluconazole 100 MG TAB PO SCH (09:08)
[2019-03-03] MEDS: Senokot S 8.6-50 MG TAB PO SCH (09:08)
[2019-03-03] MEDS: Losartan 25 MG TAB PO SCH (09:08)
[2019-03-03] MEDS: Saccharomyces boulardii 250 MG CAP PO SCH (09:09)
[2019-03-03] MEDS: Topiramate 25 MG TAB PO SCH (09:09)
[2019-03-03 12:40] VITALS: TEMP 98.6
--- NOTE | 2019-03-04 01:29 | DIS ---
DATE OF ADMISSION: 02/26/2019 DATE OF DISCHARGE: 03/03/2019 PRIMARY CARE PROVIDER: [facility]. DISCHARGE DIAGNOSES: 1. Community-acquired pneumonia. 2. Neema vaginitis. CONDITION OF PATIENT ON THE DAY OF DISCHARGE: Stable. I assessed Ms. Wali Grey on the day of discharge. She denies any chest pain or shortness of breath. Vital signs are stable. S1 and S2 are heard, regular. Lungs are clear to auscultation bilaterally. DISCHARGE MEDICATIONS: 1. Acyclovir 400 mg daily. 2. Bupropion 200 mg 2 times a day. 3. Clonidine 0.2 mg daily. 4. Benicar 40 mg daily. 5. Celexa 40 mg daily, to be resumed after completing a course of levofloxacin. 6. Levofloxacin 750 mg daily for 5 more days. HOSPITAL COURSE: Ms. Wali Grey is a pleasant 49-year-old lady, who was admitted to [facility] on 02/26/2019, for community-acquired pneumonia. She had CT angiogram of the chest, which did not show any evidence of pulmonary embolism. She had patchy airspace disease in the right lung suggestive of pneumonia or aspiration pneumonia. She also had fluid-filled esophagus with apparent wall thickening. She has been advised to follow up with primary care provider for esophageal wall thickening. She improved clinically. She has been switched to oral levofloxacin. She is being discharged home in a stable condition. POST-DISCHARGE FOLLOWUP: The patient is advised to follow up with primary care provider in 3 to 5 days' time. She was also treated with fluconazole for candidal vaginitis. Many thanks for allowing me to participate in your patient's care. Please feel free to contact me with any questions or concerns. LABORATORY DATA: On the day of discharge, she has sodium 137, potassium 4.2, creatinine 0.92. White count 7900, hemoglobin 10.4, and platelet count 379,000. DISCHARGE DESTINATION: Home. TIME SPENT: Total amount of time spent coordinating this discharge: 32 minutes. Job ID: [id number]
--- NOTE | 2019-03-05 00:41 | PQF ---
Meredith Birmingham DAVID [id number] CLINICAL DOCUMENTATION CLARIFICATION FORM: POST DISCHARGE Addendum to original discharge summary date: ____ Late entry note date: __ DATE: 03/05/19 ATTN: Shahbaz Rcoha Please exercise your independent, professional judgment in responding to the clarification form. Clinical indicators are provided on the bottom of this form for your review Please check appropriate box(s) to clarify if the following diagnosis has been ruled in or ruled out: Acute Hypoxic Respiratory Failue Please check appropriate box(s): [ x ] Ruled in diagnosis [ ] Continue to treat [ x ] Resolved [ ] Ruled out diagnosis [ ] Cannot rule out diagnosis [ ] Other diagnosis [ ] Unable to determine In addition, please specify: Present on Admission (POA): [ x ] Yes [ ] No [ ] Unable to determine For continuity of documentation, please document condition throughout progress notes and discharge summary. Thank You. CLINICAL INDICATORS - SIGNS / SYMPTOMS / LABS ED Provider note p2 02/26 Respiratory exam included findings of moderate respiratory distress. Breath sound diminised ED Provider note p2 02/26 Vital sigb BP 141/69, Pulse 114, Resp 22, O2 sat 88% ED Provider note p3 02/26 Informed pt result thus far, with PNA identified on CXR RISK FACTORS ED Provider note p4 02/26 Acute Hypoxemic Respiratory Failure ED Provider note p4 02/26 Community acquired Pneumonia TREATMENTS Respiratpry panel 02/26 2L via nasal cannula MAR 02/26 Duoneb 3ml via Nebulizer MAR 02/26 IV RocMeredith Mejia DAVID [id number] CLINICAL DOCUMENTATION CLARIFICATION FORM: POST DISCHARGE Addendum to original discharge summary date: ____ Late entry note date: __ DATE: 03/05/19 ATTN: Shahbaz Rocha Please exercise your independent, professional judgment in responding to the clarification form. Clinical indicators are provided on the bottom of this form for your review Please check appropriate box(s) to clarify if the following diagnosis has been ruled in or ruled out: Acute Hypoxic Respiratory Failue Please check appropriate box(s): [ ] Ruled in diagnosis [ ] Continue to treat [ ] Resolved [ ] Ruled out diagnosis [ ] Cannot rule out diagnosis [ ] Other diagnosis [ ] Unable to determine In addition, please specify: Present on Admission (POA): [ ] Yes [ ] No [ ] Unable to determine For continuity of documentation, please document condition throughout progress notes and discharge summary. Thank You. CLINICAL INDICATORS - SIGNS / SYMPTOMS / LABS ED Provider note p2 02/26 Respiratory exam included findings of moderate respiratory distress. Breath sound diminised ED Provider note p2 02/26 Vital sigb BP 141/69, Pulse 114, Resp 22, O2 sat 88% ED Provider note p3 02/26 Informed pt result thus far, with PNA identified on CXR RISK FACTORS ED Provider note p4 02/26 Acute Hypoxemic Respiratory Failure ED Provider note p4 02/26 Community acquired Pneumonia TREATMENTS Respiratpry panel 02/26 2L via nasal cannula JUL 07 Duoneb 3ml via Nebulizer MAR 02/26 IV Rocephin (This form is maintained as a part of the permanent medical record) 2014 [employer]. All Rights Reserved [employer] [email or web address] [not provided] MTDD
--- NOTE | 2019-03-05 00:42 | PQF ---
Meredith Birmingham DAVID [id number] CLINICAL DOCUMENTATION CLARIFICATION FORM: POST DISCHARGE Addendum to original discharge summary date: ____ Late entry note date: __ DATE: 03/05/19 ATTN: Shahbaz Rocha Please exercise your independent, professional judgment in responding to the clarification form. Clinical indicators are provided on the bottom of this form for your review Please check appropriate box(s): [ ] Aspiration Pneumonia [ x ] Community Acquired Penumonia [ ] Pneumonia secondary to (specify organism / underlying disease) [ ] Pneumonia of unknown etiology [ ] Other diagnosis [ ] Unable to determine In addition, please specify: Present on Admission (POA): [ x ] Yes [ ] No [ ] Unable to determine For continuity of documentation, please document condition throughout progress notes and discharge summary. Thank You. CLINICAL INDICATORS - SIGNS / SYMPTOMS / LABS ED Provider note p2 02/26 Respiratory exam included findings of moderate respiratory distress. Breath sound diminised ED Provider note p2 02/26 Vital sigb BP 141/69, Pulse 114, Resp 22, O2 sat 88% ED Provider note p3 02/26 Informed pt result thus far, with PNA identified on CXR H&P p1 02/26 The patient has been having worsening GERD symptoms RISK FACTORS ED Provider note p4 02/26 Acute Hypoxemic Rspiratory Failure ED Provider note p4 02/26 - Community acquired Pneumonia H&P p1 02/26 GERD TREATMENTS: Respiratpry panel 02/26 2L via nasal cannula MAR 02/26 Duoneb 3ml via Nebulizer MAR 02/26 IV Rocephin (This form is maintained as a part of the permanent medical record) 2014 [employer]. All Rights Reserved [employer] [not provided] MTDD
--- NOTE | 2019-03-06 20:53 | PQF ---
Meredith Birmingham DAVID [id number] CLINICAL DOCUMENTATION CLARIFICATION FORM: POST DISCHARGE Addendum to original discharge summary date: ____ Late entry note date: __ DATE: 03/06/19 ATTN: Shahbaz Rocha Please exercise your independent, professional judgment in responding to the clarification form. Clinical indicators are provided on the bottom of this form for your review Please check appropriate box(es): [ x ] Sepsis due to Pneumonia [ ] SIRS due to non-infectious process (please specify etiology) [ ] with organ dysfunction [ ] without organ dysfunction [ ] Severe sepsis with acute organ dysfunction of: (Examples: respiratory failure, encephalopathy, acute kidney failure, other) [ ] Septic Shock [ ] Localized infection without sepsis [ ] Other diagnosis [ ] Unable to determine In addition, please specify: Present on Admission (POA): [ x ] Yes [ ] No [ ] Unable to determine For continuity of documentation, please document condition throughout progress notes and discharge summary. Thank You. CLINICAL INDICATORS - SIGNS / SYMPTOMS / LABS ED Provider note p2 02/26 Respiratory exam included findings of moderate respiratory distress. Breath sound diminised ED Provider note p2 02/26 Vital sigb BP 141/69, Pulse 114, Resp 22, O2 sat 88% ED Provider note p3 02/26 Informed pt result thus far, with PNA identified on CXR RISK FACTORS ED Provider note p4 02/26 Acute Hypoxemic Rspiratory Failure ED Provider note p4 02/26 - Community acquired Pneumonia ED Provider note p4 02/26 Systemic inflammatory response syndrome TREATMENTS: MAR 02/26 IV Rocephin Respiratpry panel 02/26 2L via nasal cannula MAR 02/26 Duoneb 3ml via Nebulizer (This form is maintained as a part of the permanent medical record) 2014 [employer]. All Rights Reserved [employer] [email or web address] [not provided] MTDD
== END 2019-03-03 12:40 | disposition home or self-care (01) | DRG 871 ==
LOC: ERS 02:56 → ERHOLD 05:37 → T4-A 11:15
PROVIDERS: ADMIT Family Medicine; ATTEND Family Medicine
DX: A41.9 Sepsis, unspecified organism (principal); J18.9 Pneumonia, unspecified organism; J96.01 Acute respiratory failure with hypoxia; Z68.42 Body mass index [BMI] 45.0-49.9, adult; B37.3 Candidiasis of vulva and vagina; F17.290 Nicotine dependence, other tobacco product, uncomplicated; I10 Essential (primary) hypertension; K21.9 Gastro-esophageal reflux disease without esophagitis; F41.9 Anxiety disorder, unspecified; E66.01 Morbid (severe) obesity due to excess calories; F31.9 Bipolar disorder, unspecified; Z23 Encounter for immunization; Z79.899 Other long term (current) drug therapy
CPT/HCPCS: 36415; 71046; 71275; 80048; 80053; 80061; 82550; 83036; 83735; 84439; 84443; 84481; 84484; 85025; 85379; 87804; 90471; 90686; 93005; 94640; 96365; 96367; 96375; G0008; J0456; J0696; J2405; J2543; J2930; J3490; J7050; J7620; Q0163; Q9966

== ENCOUNTER 2020-08-25 17:05 | Emergency (ER) | payer SELFPAY ==
[2020-08-25 19:17] LABS: #Basophils 0.1 thou/uL (0.0-0.2); #Eosinphils 0.1 thou/uL (0.0-0.7); #Lymphocytes 2.2 thou/uL (1.20-3.40); #Monocytes 0.5 thou/uL (0.11-0.59); #Neutrophils 3.4 thou/uL (1.40-6.50); %Basophils 1.1 % (0.0-1.0); %Eosinophils 2.3 % (0.0-10.0); %Lymphocytes 34.2 % (21.0-51.0); %Monocytes 8.5 % (0.0-10.0); %Neutrophils 53.9 % (42.0-75.0); Hemoglobin 8.9 g/dL (12.0-16.0); Mean Corpuscular HGB CONC 31.1 g/dL (32.0-36.0); Mean Corpuscular Hemoglobin 23.3 pg (27.0-31.0); Mean Corpuscular Volume 74.8 fL (78.0-98.0); Mean Platelet Volume 7.3 fL (7.4-10.4); Platelet Count 385 thou/uL (130-400); RBC Distribution Width 14.6 % (11.5-14.5); Red Blood Cell (RBC) Count 3.83 mill/uL (4.20-5.40); White Blood Cell (WBC) Count 6.3 thou/uL (4.8-10.8)
[2020-08-25 19:34] LABS: Elliptocytes SLIGHT = 2-5 cells (100X) (0-1/hpf); Hypochromia SLIGHT = 6-15 cells (100X) (0-5/hpf); MDiff Complete? YES; Microcytosis SLIGHT = 6-15 cells (100X) (0-5/hpf); Platelet Morphology Comment Appears Adequate; Polychromasia SLIGHT = 2-3 cells (100X) (0-2/hpf)
[2020-08-25 19:35] LABS: ALT (SGPT) 19 U/L (8-55); AST (SGOT) 25 U/L (5-34); Alkaline Phosphatase 79 U/L (40-110); Anion Gap 14 mmol/L (10-20); BUN (Urea Nitrogen) 9 mg/dL (7.0-18.7); Bilirubin, Total 0.3 mg/dL (0.2-1.2); Calc. Creatinine Clearance 0 mL/min (70-130); Calcium 9.2 mg/dL (7.8-10.44); Carbon Dioxide 25 mmol/L (22-29); Chloride 105 mmol/L (98-107); Globulin 3.1 g/dL (2.4-3.5); Glucose 84 mg/dL (70-105); Potassium 4.8 mmol/L (3.5-5.1); Protein, Total 7.1 g/dL (6.0-8.3); Sodium 139 mmol/L (136-145)
== END 2020-08-25 20:13 | disposition home or self-care (01) ==
LOC: ERS 17:05
DX: M79.672 Pain in left foot (principal); D50.9 Iron deficiency anemia, unspecified; I10 Essential (primary) hypertension; Z79.01 Long term (current) use of anticoagulants; Z79.899 Other long term (current) drug therapy
CPT/HCPCS: 36415; 80053; 85025; 93005